=== PATIENT | male | born 1940 | race Caucasian/White ===

== ENCOUNTER → 2024-09-06 | Outpatient (CLI) | payer MEDICARE, BC, SELFPAY ==
[2024-09-06 09:18] LABS: Basophils # (Auto) 0.1 Thou/mm3 (0.0-0.2); Basophils % (Auto) 2 % (0-2.5); Eosinophils # (Auto) 0.2 Thou/mm3 (0.0-0.5); Eosinophils % (Auto) 6 % (0-10); Hematocrit 40.8 % (41.0-53.0); Hemoglobin 12.8 g/dL (13.5-16.0); Immature Granulocytes % (Auto) 0 % (0-0); Immature Granulocytes Auto 0.01 Thou/mm3 (0.00-0.00); Lymphocytes # (Auto) 0.9 Thou/mm3 (1.0-4.8); Lymphocytes % (Auto) 28 % (10-50); Mean Corpuscular HGB Conc 31.4 g/dl (31.0-37.0); Mean Corpuscular Hemoglobin 30.2 pg (25.0-35.0); Mean Corpuscular Volume 96 fL (80-100); Monocytes # (Auto) 0.3 Thou/mm3 (0.0-0.8); Monocytes % (Auto) 8 % (0-12); Neutrophils # (Auto) 1.8 Thou/mm3 (1.8-7.7); Neutrophils % (Auto) 57 % (37-80); Nucleated Red Blood Cell % 0 /100 WBC (0); Platelet Count 137 Thou/mm3 (140-440); Red Blood Count 4.24 Miln/mm3 (4.50-5.90); White Blood Count 3.1 Thou/mm3 (3.8-10.6)
[2024-09-06 09:36] LABS: Glucose Estimated Average 111 mg/dL (80-131); Hemoglobin A1C 5.5 % Hgb (4.8-6.0)
[2024-09-06 09:45] LABS: Alanine Aminotransferase 36 U/L (10-49); Albumin, Serum 4.1 gm/dL (3.4-4.8); Alkaline Phosphatase 48 U/L (46-116); Anion Gap 4 (7-16); Aspartate Amino Transferase 31 U/L (0-34); BUN/Creatinine Ratio 19 Ratio (12-20); Bilirubin,Total 1.1 mg/dL (0.3-1.2); Blood Urea Nitrogen 19 mg/dL (9-23); Calcium 10.3 mg/dL (8.3-10.6); Calcium (Corrected) 10.3 mg/dL (8.5-10.1); Carbon Dioxide 27.4 mMol/L (20.0-31.0); Cardiac Risk Estimate 3.4 RATIO (4.0-6.7); Chloride 112 mMol/L (98-107); Cholesterol 179 mg/dL (132-200); Globulin 2.1 gm/dL (2.3-3.5); Glucose 100 mg/dL (74-106); HDL Cholesterol 52 mg/dL (40-60); LDL Cholesterol,Calculated 106 mg/dL (0-130); Osmolality,Calculated 287 (275-295); Potassium 4.2 mMol/L (3.4-5.1); Sodium 143 mMol/L (136-145); Thyroid Stimulating Hormone 2.84 uIU/mL (0.55-4.78); Total Protein 6.2 gm/dL (5.7-8.2); Triglycerides 103 mg/dL (30-150); eGFR > 60 See Note
[2024-09-06 09:56] LABS: Ferritin 243 ng/mL (10.5-307.3); Iron 103 mcg/dL (65-175); Percent Iron Saturation 34 % (20-55); Total Iron Binding Capacity 297 mcg/dL (250-425); Unsaturated Iron Binding 194 (225-295)
== END | disposition home or self-care (01) ==
PROVIDERS: PCP Family Medicine; Referring Provider Physician Assistant; Visit Provider Physician Assistant
DX: I10 Essential (primary) hypertension (principal); E78.5 Hyperlipidemia, unspecified; E03.9 Hypothyroidism, unspecified; R73.01 Impaired fasting glucose; D50.9 Iron deficiency anemia, unspecified
CPT/HCPCS: 36415; 80053; 80061; 82728; 83036; 83540; 83550; 84443; 85025

== ENCOUNTER → 2024-10-14 | Outpatient (CLI) | payer MEDICARE, BC, SELFPAY ==
[2024-10-14 13:46] LABS: Alanine Aminotransferase 27 U/L (10-49); Albumin/Globulin Ratio 1.8 (1.2-2.2); Alkaline Phosphatase 50 U/L (46-116); Anion Gap 4 (7-16); Aspartate Amino Transferase 22 U/L (0-34); BUN/Creatinine Ratio 21 Ratio (12-20); Bilirubin,Total 0.9 mg/dL (0.3-1.2); Blood Urea Nitrogen 25 mg/dL (9-23); Calcium 10.4 mg/dL (8.3-10.6); Calcium (Corrected) 10.4 mg/dL (8.5-10.1); Carbon Dioxide 31.1 mMol/L (20.0-31.0); Chloride 106 mMol/L (98-107); Creatinine (Component) 1.2 mg/dL (0.6-1.3); Globulin 2.2 gm/dL (2.3-3.5); Glucose 115 mg/dL (74-106); Osmolality,Calculated 286 (275-295); Potassium 4.3 mMol/L (3.4-5.1); Sodium 141 mMol/L (136-145); Total Protein 6.2 gm/dL (5.7-8.2); eGFR 60 See Note
== END | disposition home or self-care (01) ==
LOC: COPL 11:42
PROVIDERS: PCP Family Medicine; Referring Provider Family Medicine; Visit Provider Family Medicine
DX: M81.0 Age-related osteoporosis without current pathological fracture (principal)
CPT/HCPCS: 36415; 80053

== ENCOUNTER → 2024-10-17 | Outpatient (CLI) | payer MEDICARE, BC, SELFPAY ==
[2024-10-17 09:21] VITALS: BP 127/78; PULSE 61; RESP 18; TEMP 36.3; O2SAT 98; BMI 29.0
[2024-10-17] MEDS: DENOSUMAB INJ 60 MG/ML SYRINGE SC (09:33)
[2024-10-17 09:44] VITALS: BP 119/80; PULSE 64; RESP 17; TEMP 36.3; O2SAT 98
== END | disposition home or self-care (01) ==
PROVIDERS: PCP Family Medicine; Referring Provider Family Medicine; Visit Provider Family Medicine
PROC: (CPT 96372; principal; 2024-10-17 08:30)
DX: M81.0 Age-related osteoporosis without current pathological fracture (principal)
CPT/HCPCS: 96372; J0897

== ENCOUNTER → 2025-01-24 | Outpatient (CLI) | payer MEDICARE, BC, SELFPAY ==
--- NOTE | 2025-01-24 13:00 | XR_ITS ---
Examination: MRI brain without intravenous contrast. Date and time of exam: January 24, 2025 1321 hours Comparison May 18, 2020 INDICATIONS: Increasing memory loss several years Technique: Multiple axial and sagittal images of the brain obtained. Siemens high-resolution 1.5 Shannan short bore scanners utilized. Sagittal sections, T1-weighted, TR 500, TE 14, are performed. Axial sections proton-density and T2-weighted have been obtained. Inversion recovery axial images, TR 9, 260, TE 111, TI 2500. Diffusion weighted images, axial sections, TR 4800, TE 128, B value 1000 Axial sections, ADC map, TR 4800, TE 128 Findings: Enlargement of the sella turcica is not present. The optic chiasm and infundibular are not remarkable. Prepontine and interpeduncular cisterns are not enlarged. There is no localized enlargement of the medulla or genoveva. Fourth ventricle and cerebellar tonsils appear normal in position. No subacute area of hemorrhage density is seen. Mass in the cerebellopontine angle region is not evident. Globes symmetrical. Orbital musculature including medial lateral rectus muscles do not exhibit abnormality. Diffusion-weighted images demonstrate no focus of restricted diffusion. Increased white matter signal prominent Mass effect upon the ventricular system is not identified. Impression: Negative for acute hemorrhage mass effect or midline shift No acute infarct Prominent chronic microvascular white matter change
== END | disposition home or self-care (01) ==
PROVIDERS: Referring Provider Psychiatry & Neurology Neurology; Visit Provider Psychiatry & Neurology Neurology
DX: R90.82 White matter disease, unspecified (principal)
CPT/HCPCS: 70551

== ENCOUNTER → 2025-03-06 | Outpatient (CLI) | payer MEDICARE, BC, SELFPAY ==
[2025-03-06 11:46] LABS: Basophils % (Auto) 0 % (0-2.5); Eosinophils % (Auto) 0 % (0-10); Hematocrit 37.4 % (41.0-53.0); Hemoglobin 12.1 g/dL (13.5-16.0); Immature Granulocytes % (Auto) 0 % (0-0); Immature Granulocytes Auto 0.02 Thou/mm3 (0.00-0.00); Lymphocytes # (Auto) 0.7 Thou/mm3 (1.0-4.8); Lymphocytes % (Auto) 10 % (10-50); Mean Corpuscular HGB Conc 32.4 g/dl (31.0-37.0); Mean Corpuscular Hemoglobin 30.9 pg (25.0-35.0); Mean Corpuscular Volume 96 fL (80-100); Monocytes # (Auto) 0.3 Thou/mm3 (0.0-0.8); Monocytes % (Auto) 5 % (0-12); Neutrophils % (Auto) 85 % (37-80); Nucleated Red Blood Cell % 0 /100 WBC (0); Platelet Count 148 Thou/mm3 (140-440); RDW Standard Deviation 46.4 fL (35.1-43.9); Red Blood Count 3.91 Miln/mm3 (4.50-5.90); White Blood Count 7.1 Thou/mm3 (3.8-10.6)
[2025-03-06 12:02] LABS: Glucose Estimated Average 114 mg/dL (80-131); Hemoglobin A1C 5.6 % Hgb (4.8-6.0)
[2025-03-06 12:11] LABS: Alanine Aminotransferase 22 U/L (10-49); Albumin/Globulin Ratio 1.5 (1.2-2.2); Alkaline Phosphatase 46 U/L (46-116); Anion Gap 9 (7-16); Aspartate Amino Transferase 24 U/L (0-34); BUN/Creatinine Ratio 18 Ratio (12-20); Bilirubin,Total 1.2 mg/dL (0.3-1.2); Blood Urea Nitrogen 20 mg/dL (9-23); Calcium 10.5 mg/dL (8.3-10.6); Calcium (Corrected) 10.5 mg/dL (8.5-10.1); Carbon Dioxide 26.3 mMol/L (20.0-31.0); Cardiac Risk Estimate 3.4 RATIO (4.0-6.7); Chloride 110 mMol/L (98-107); Cholesterol 179 mg/dL (132-200); Creatinine (Component) 1.1 mg/dL (0.6-1.3); Globulin 2.6 gm/dL (2.3-3.5); Glucose 137 mg/dL (74-106); HDL Cholesterol 52 mg/dL (40-60); LDL Cholesterol,Calculated 114 mg/dL (0-130); Osmolality,Calculated 293 (275-295); Potassium 4.7 mMol/L (3.4-5.1); Sodium 145 mMol/L (136-145); Thyroid Stimulating Hormone 0.95 uIU/mL (0.55-4.78); Total Protein 6.6 gm/dL (5.7-8.2); Triglycerides 64 mg/dL (30-150); eGFR > 60 See Note
[2025-03-06 12:13] LABS: Ferritin 237 ng/mL (10.5-307.3); Iron 101 mcg/dL (65-175)
== END | disposition home or self-care (01) ==
LOC: COPL 09:44
PROVIDERS: PCP Family Medicine; Referring Provider Physician Assistant; Visit Provider Physician Assistant
DX: E78.5 Hyperlipidemia, unspecified (principal); R73.01 Impaired fasting glucose; I10 Essential (primary) hypertension; E03.9 Hypothyroidism, unspecified; D50.9 Iron deficiency anemia, unspecified
CPT/HCPCS: 36415; 80053; 80061; 82728; 83036; 83540; 84443; 85025

== ENCOUNTER → 2025-03-19 | Outpatient (CLI) | payer MEDICARE, BC, SELFPAY ==
[2025-03-19 10:00] VITALS: BP 99/66; PULSE 52; RESP 15; TEMP 37; O2SAT 98; BMI 30.7
[2025-03-19] MEDS: DENOSUMAB INJ 60 MG/ML SYRINGE SC (10:11)
[2025-03-19 10:15] VITALS: BP 123/67; PULSE 51; RESP 15; TEMP 36.4; O2SAT 100
== END | disposition home or self-care (01) ==
PROVIDERS: PCP Family Medicine; Referring Provider Family Medicine; Visit Provider Family Medicine
PROC: (CPT 96372; principal; 2025-03-19 09:00)
DX: M81.0 Age-related osteoporosis without current pathological fracture (principal)
CPT/HCPCS: 96372; J0897

== ENCOUNTER 2025-04-18 13:07 | Emergency (ER) | payer MEDICARE, BC, SELFPAY ==
[2025-04-18 13:24] VITALS: BP 145/89; PULSE 116; RESP 20; TEMP 36.8; O2SAT 95
--- NOTE | 2025-04-18 13:27 | XR_ITS ---
Examination: Hand, left 3 views Technique: Hand AP, oblique, lateral 3 views Date and time of exam: April 18, 2025 1328 hours INDICATIONS: Hand swelling and pain beginning 2 weeks ago. FINDINGS: Severe osteopenia No acute fracture No cortical bone obstruction No erosive arthritis IMPRESSION: Severe osteopenia No fracture
--- NOTE | 2025-04-18 13:28 | PD.EDHAND ---
Upper Extremity Injury RME/HPI General Chief Complaint: Hand/Wrist Problems Stated Complaint: Left hand pain on antibiotics X 10 days Time Seen by Provider: 04/18/25 13:17 Arrival date/time: 04/18/25 13:07 RME / HPI RME / HPI narrative: 85-year-old male patient was brought in by family for evaluation regarding hand pain. Patient was diagnosed with hand infection, 10 days ago, and was given clindamycin. Patient is currently taking clindamycin for 4 more days left. This morning patient woke up with worsening pain to the left hand, described as sharp pain severity moderate patient verbalized that the swelling and redness is totally gone. No fever noted went to PCP and was referred here for further evaluation. Related Data Home Medications ?Medication ?Instructions ?Recorded ?Confirmed tamsulosin 0.4 mg capsule 0.4 mg PO QDAY 08/20/19 10/17/24 carvedilol 3.125 mg tablet (Coreg) 3.125 mg PO BID 05/18/20 10/17/24 levothyroxine 75 mcg tablet 25 mcg PO QAM 05/18/20 10/17/24 amiodarone 200 mg tablet 200 mg PO BID 12/20/21 10/17/24 omeprazole 20 mg capsule,delayed 20 mg PO QDAY 12/20/21 10/17/24 release warfarin 2.5 mg tablet 2.5 mg PO QDAY 10/21/22 10/17/24 oxybutynin chloride 10 mg 10 mg PO QDAY 03/31/23 10/17/24 tablet,extended release 24 hr Previous Rx's ?Medication ?Instructions ?Recorded acetaminophen 300 mg-codeine 30 mg 1 tab PO Q8H pain #20 tabs 04/18/25 tablet Allergies Allergy/AdvReac Type Severity Reaction Status Date / Time No Known Allergies Allergy Verified 04/18/25 13:14 Review of Systems Review of Systems Narrative Review of Systems: Review of system reviewed and within normal limits except mentioned in HPI ED Exam Narrative Physical exam: VITAL SIGNS: Reviewed. GENERAL APPEARANCE: Alert and interactive, follows commands, no acute distress, HEAD AND FACE: Non-traumatic. ENT: PERRL, pink conjunctivitis, eyelid no trauma, Mucous membrane moist. NECK: Supple, nontender, no nuchal rigidity. CHEST: No tenderness, no crepitus, no paradoxical movement, no retractions. LUNGS: Clear, well ventilated, symmetric, no rales, no wheezing, no ronchi, no stridor, good breath sounds bilaterally. HEART: Regular rate, regular rhythm, no murmur, no gallops. ABDOMEN: Soft, positive bowel sounds, nondistended, no guarding, nontender, no rebound, no masses, RECTAL: Deferred. GENITAL: Deferred. NEUROLOGICAL: Gross motor function intact sensory function intact, Appropriate for age. MUSCULOSKELETAL: low back nontender, full range of motion. EXTREMITIES: Tenderness to the dorsal aspect of the hand, no redness no swelling no deformity, full range of motion. SKIN: Color pink, dry, no rash, no lacerations, no abrasions, no contusions. LYMPHATICS: Deferred. Course Quality Measures none Orders Category Date Time Status XR hand LT 2V Stat Exams 04/18/25 13:27 Completed CBC Stat Lab 04/18/25 13:34 Completed CRP [C-Reactive Protein] Stat Lab 04/18/25 13:34 Completed Comprehensive Metabolic Panel Stat Lab 04/18/25 13:34 Completed ESR [Sed Rate (ESR)] Stat Lab 04/18/25 13:34 Completed Partial Thromboplastin Time Stat Lab 04/18/25 13:34 Completed Prothrombin Time with INR Stat Lab 04/18/25 13:34 Completed Uric Acid Stat Lab 04/18/25 13:34 Completed Morphine Inj Med 04/18/25 13:27 Discontinued 5 mg IM X1 ONE Ondansetron Odt [Zofran Odt] Med 04/18/25 13:27 Discontinued 4 mg PO X1 ONE Vital Signs Vital signs: Vital Signs Temperature 98.2 F 04/18/25 13:24 Pulse Rate 116 H 04/18/25 13:24 Respiratory Rate 20 04/18/25 13:24 Blood Pressure 145/89 H 04/18/25 13:24 Pulse Oximetry (%) 95 04/18/25 13:24 Oxygen Delivery Method Room Air 04/18/25 13:24 Extremity Injury MDM Narrative MDM Narrative:: 85-year-old male patient was brought in by family for evaluation regarding hand pain. Patient was diagnosed with hand infection, 10 days ago, and was given clindamycin. Patient is currently taking clindamycin for 4 more days left. This morning patient woke up with worsening pain to the left hand, described as sharp pain severity moderate patient verbalized that the swelling and redness is totally gone. No fever noted went to PCP and was referred here for further evaluation. X-ray of the hand showed no acute pathology except for osteopenia. Laboratory CBC no leukocytosis noted. PT was noted to be 46.8 INR 4.8. Patient is currently stopping his Coumadin until seen by PCP. CMP unremarkable. ESR and CRP slightly elevated. Patient was placed on hand splint. Was also given morphine with significant improvement of pain. Patient data External records reviewed:: None Clinical information provided by:: patient Social determinants that could affect healthcare access:: none Patient has the following chronic illnesses:: Hypertension, CAD, on Coumadin How is presenting disease/condition affected by chronic disease/condition?: exacerbated by Evaluation data The following diagnostics were reviewed and interpreted by me:: lab results and radiology exam(s) Lab and/or radiology exams considered but not ordered:: None Interpretation Summary: See results MDM Medications / Prescriptions Medications or Prescriptions considered but not ordered:: None Medication administrations:: Medication Administration History Discontinued Medications Morphine Sulfate (Morphine Sulf Inj 10 Mg/Ml Vial) 5 mg IM X1 ONE Stop: 04/18/25 13:28 Last Admin: 04/18/25 13:43 Dose: 5 mg Documented By: SOPHIE Ondansetron HCl (Ondansetron Odt 4 Mg Tabrap) 4 mg PO X1 ONE; Protocol Stop: 04/18/25 13:28 Last Admin: 04/18/25 13:43 Dose: 4 mg Documented By: SOPHIE Vo morphine Consultations Consultation(s) initiated? (list below): No Diagnosis Upper Extremity Injury Differential Diagnosis: sprain and strain of wrist, fracture of hand and other (Hand sprain) Most likely diagnosis given after review of the tests above:: Hand pain Admission Indicated Admission indicated?: not indicated Admission Request Was there a request for admission?: No Disposition Plan Disposition Plan: Discharge Discharge Attestation Discharge Attestation: The patient and all family members were given an opportunity to ask questions and understood the discharge instructions. Discharge instructions specifically effects, indications for sooner follow up or return to the emergency department, and the expected course of current diagnosis. Patient condition: Stable Discharge Plan Plan Patient Disposition: HOME (Self Care) Discharge Disposition comment: Stable Prescriptions/Referrals Prescriptions/Med Rec: New acetaminophen-codeine 300-30 mg tablet 1 tab PO Q8H Qty: 20 0RF No Action tamsulosin 0.4 mg capsule 0.4 mg PO QDAY oxybutynin chloride 10 mg tablet extended release 24hr 10 mg PO QDAY carvedilol [Coreg] 3.125 mg Tablet 3.125 mg PO BID levothyroxine 75 mcg tablet 25 mcg PO QAM Patient Comments: TAKE 1 TABLET BY MOUTH ONCE DAILY IN THE MORNING ON AN EMPTY STOMACH FOR 90 DAYS amiodarone 200 mg tablet 200 mg PO BID omeprazole 20 mg capsule,delayed release(DR/EC) 20 mg PO QDAY warfarin 2.5 mg tablet 2.5 mg PO QDAY Patient Comments: TAKE 1 TABLET BY MOUTH ONCE DAILY FOR 90 DAYS Referrals: Heriberto Grigsby MD [Primary Care Provider] - In 1 week Problem List Clinical Impression: Hand pain Patient/Caregiver Discharge Instructions Discharge Activity: activity as tolerated Education Materials: ED Hand Sprain Additional Instructions: Thank you for the opportunity for serving you today. You are stable for discharged . You are advised to: Follow-up with your PCP in 1 to 2 days Return to ED for worsening of symptoms Increase oral fluids Take medication as prescribed Wear your splint as needed Print Language: Bahamian Stand Alone Forms: Helen Award Info., Patient Portal Info Letter
[2025-04-18] MEDS: ONDANSETRON ODT 4 MG TABRAP PO (13:43)
[2025-04-18] MEDS: MORPHINE SULF INJ 10 MG/ML VIAL 5 MG IM (13:43)
[2025-04-18 13:45] LABS: Basophils % (Auto) 0 % (0-2.5); Eosinophils # (Auto) 0.1 Thou/mm3 (0.0-0.5); Eosinophils % (Auto) 1 % (0-10); Hematocrit 38.7 % (41.0-53.0); Hemoglobin 12.4 g/dL (13.5-16.0); Immature Granulocytes % (Auto) 1 % (0-0); Immature Granulocytes Auto 0.05 Thou/mm3 (0.00-0.00); Lymphocytes # (Auto) 1.6 Thou/mm3 (1.0-4.8); Lymphocytes % (Auto) 16 % (10-50); Mean Corpuscular Hemoglobin 30.6 pg (25.0-35.0); Mean Corpuscular Volume 96 fL (80-100); Monocytes # (Auto) 0.7 Thou/mm3 (0.0-0.8); Monocytes % (Auto) 8 % (0-12); Neutrophils # (Auto) 7.1 Thou/mm3 (1.8-7.7); Neutrophils % (Auto) 74 % (37-80); Nucleated Red Blood Cell % 0 /100 WBC (0); Platelet Count 198 Thou/mm3 (140-440); RDW Standard Deviation 47.7 fL (35.1-43.9); Red Blood Count 4.05 Miln/mm3 (4.50-5.90); White Blood Count 9.6 Thou/mm3 (3.8-10.6)
[2025-04-18 14:04] LABS: Alanine Aminotransferase 31 U/L (10-49); Albumin, Serum 3.7 gm/dL (3.4-4.8); Albumin/Globulin Ratio 1.5 (1.2-2.2); Alkaline Phosphatase 59 U/L (46-116); Anion Gap 9 (7-16); Aspartate Amino Transferase 22 U/L (0-34); BUN/Creatinine Ratio 16 Ratio (12-20); Bilirubin,Total 1.4 mg/dL (0.3-1.2); Blood Urea Nitrogen 21 mg/dL (9-23); C-Reactive Protein 6.1 mg/dL (0.0-0.9); Calcium 11.3 mg/dL (8.3-10.6); Calcium (Corrected) 11.5 mg/dL (8.5-10.1); Chloride 101 mMol/L (98-107); Creatinine (Component) 1.3 mg/dL (0.6-1.3); Globulin 2.4 gm/dL (2.3-3.5); Glucose 119 mg/dL (74-106); Osmolality,Calculated 287 (275-295); Potassium 4.1 mMol/L (3.4-5.1); Sodium 142 mMol/L (136-145); Total Protein 6.1 gm/dL (5.7-8.2); Uric Acid 8.5 mg/dL (3.7-9.2); eGFR 54 See Note
[2025-04-18 14:15] LABS: INR 4.8 (0.9-1.3); Partial Thromboplastin Time 70.9 Seconds (22.0-36.0)
[2025-04-18 14:18] LABS: Sed Rate (ESR) 43 mm/hr (0-20)
[2025-04-18 14:49] LABS: Prothrombin Time 46.8 Seconds (9.0-12.2)
== END 2025-04-18 17:16 | disposition home or self-care (01) ==
PROVIDERS: Nurse Practitioner Family; Emergency Provider Emergency Medicine; PCP Family Medicine
DX: M79.642 Pain in left hand (principal); M85.842 Other specified disorders of bone density and structure, left hand; M79.89 Other specified soft tissue disorders
CPT/HCPCS: 36415; 73120; 73130; 80053; 84550; 85025; 85610; 85652; 85730; 86140; 96372; 99283; J2270; Q0162

== ENCOUNTER → 2025-09-26 | Outpatient (CLI) | payer MEDICARE, BC, SELFPAY ==
[2025-09-26 10:40] VITALS: BMI 28.2
[2025-09-26] MEDS: DENOSUMAB INJ 60 MG/ML SYRINGE SC (10:50)
[2025-09-26 11:09] VITALS: BP 156/82; PULSE 58; RESP 18; TEMP 36.4; O2SAT 98
[2025-09-26 11:13] VITALS: BP 141/78; PULSE 56; RESP 18; TEMP 36.4; O2SAT 98
== END | disposition home or self-care (01) ==
LOC: SFLEX 10:16
PROVIDERS: PCP Family Medicine; Referring Provider Family Medicine; Visit Provider Family Medicine
PROC: (CPT 96372; principal; 2025-09-26 10:15)
DX: M81.0 Age-related osteoporosis without current pathological fracture (principal)
CPT/HCPCS: 96372; J0897

== ENCOUNTER → 2025-10-07 | Outpatient (CLI) | payer MEDICARE, BC, SELFPAY ==
[2025-10-07 11:12] LABS: Basophils # (Auto) 0.0 Thou/mm3 (0.0-0.2); Basophils % (Auto) 1 % (0-2.5); Eosinophils # (Auto) 0.1 Thou/mm3 (0.0-0.5); Eosinophils % (Auto) 2 % (0-10); Hematocrit 39.0 % (41.0-53.0); Hemoglobin 12.0 g/dL (13.5-16.0); Immature Granulocytes Auto 0.01 Thou/mm3 (0.00-0.00); Lymphocytes # (Auto) 1.3 Thou/mm3 (1.0-4.8); Lymphocytes % (Auto) 31 % (10-50); Mean Corpuscular HGB Conc 30.8 g/dl (31.0-37.0); Mean Corpuscular Hemoglobin 29.8 pg (25.0-35.0); Mean Corpuscular Volume 97 fL (80-100); Monocytes # (Auto) 0.3 Thou/mm3 (0.0-0.8); Monocytes % (Auto) 8 % (0-12); Neutrophils # (Auto) 2.5 Thou/mm3 (1.8-7.7); Neutrophils % (Auto) 58 % (37-80); Nucleated Red Blood Cell # 0.00 Thou/mm3 (0.00-0.00); Nucleated Red Blood Cell % 0 /100 WBC (0); Platelet Count 142 Thou/mm3 (140-440); RDW Standard Deviation 52.1 fL (35.1-43.9); Red Blood Count 4.03 Miln/mm3 (4.50-5.90); White Blood Count 4.3 Thou/mm3 (3.8-10.6)
[2025-10-07 11:14] LABS: Collection Type, Urine Clean Catch; Squamous Epithelial Cell,Urine 0 /hpf (0-5)
[2025-10-07 11:26] LABS: Glucose Estimated Average 123 mg/dL (80-131); Hemoglobin A1C 5.9 % Hgb (4.8-6.0)
[2025-10-07 12:09] LABS: Alanine Aminotransferase 21 U/L (10-49); Albumin, Serum 4.2 gm/dL (3.4-4.8); Alkaline Phosphatase 62 U/L (46-116); Anion Gap 8 (7-16); Aspartate Amino Transferase 15 U/L (0-34); BUN/Creatinine Ratio 18 Ratio (12-20); Bilirubin,Total 1.1 mg/dL (0.3-1.2); Blood Urea Nitrogen 14 mg/dL (9-23); Calcium 9.6 mg/dL (8.3-10.6); Calcium (Corrected) 9.6 mg/dL (8.5-10.1); Carbon Dioxide 24.7 mMol/L (20.0-31.0); Chloride 111 mMol/L (98-107); Creatinine (Component) 0.8 mg/dL (0.6-1.3); Glucose 91 mg/dL (74-106); Osmolality,Calculated 287 (275-295); Potassium 4.5 mMol/L (3.4-5.1); Sodium 144 mMol/L (136-145); Thyroid Stimulating Hormone 1.73 uIU/mL (0.55-4.78); eGFR > 60 See Note
[2025-10-07 12:34] LABS: Bilirubin,Urine Negative (Negative); Blood,Urine Negative (Negative); Clarity,Urine Clear (Clear/Hazy); Color,Urine Yellow (Lt Yel-Yel); Culture Indicated,Urine Not Indicated; Glucose, Urine Negative (Negative); Hyaline Casts,Urine < 1 /hpf (0-1); Ketones,Urine Negative (Negative); Leukocyte Esterase,Urine Negative (Negative); Nitrite,Urine Negative (Negative); PH,Urine 7.5 (5.0-7.0); Protein,Urine Negative (Neg - Trace); RBC,Urine 1 /hpf (0-3); Specific Gravity,Urine 1.023 (1.001-1.035); Urobilinogen,Urine Negative mg/dL (0.0-1.0); WBC,Urine 4 /hpf (0-5)
[2025-10-07 13:25] LABS: Parathyroid Hormone Intact 232.7 pg/ml (18.5-88.0)
[2025-10-07 13:53] LABS: Vitamin B12 202 pg/mL (211-911); Vitamin D 25 Hydroxy Total 41.4 ng/mL (7.3-40.2)
[2025-10-07 13:55] LABS: Albumin/Globulin Ratio 1.8 (1.2-2.2); Cardiac Risk Estimate 2.4 RATIO (4.0-6.7); Cholesterol 157 mg/dL (132-200); Globulin 2.3 gm/dL (2.3-3.5); HDL Cholesterol 65 mg/dL (40-60); LDL Cholesterol,Calculated 77 mg/dL (0-130); Total Protein 6.5 gm/dL (5.7-8.2); Triglycerides 75 mg/dL (30-150)
[2025-10-07 14:05] LABS: Ferritin 213 ng/mL (10.5-307.3); Iron 83 mcg/dL (65-175)
== END | disposition home or self-care (01) ==
LOC: COPL 10:16
PROVIDERS: PCP Family Medicine; Referring Provider Physician Assistant; Visit Provider Physician Assistant
DX: R73.01 Impaired fasting glucose (principal); I10 Essential (primary) hypertension; E03.9 Hypothyroidism, unspecified; E78.5 Hyperlipidemia, unspecified; D50.9 Iron deficiency anemia, unspecified; E21.3 Hyperparathyroidism, unspecified
CPT/HCPCS: 36415; 80053; 80061; 81001; 82306; 82607; 82728; 83036; 83540; 83970; 84153; 84443; 85025

== ENCOUNTER → 2025-10-08 | Outpatient (CLI) | payer MEDICARE, BC, SELFPAY ==
[2025-10-13 06:41] LABS: Fecal Globin Result NOT DETECTED (NOT DETECTED)
== END | disposition home or self-care (01) ==
LOC: SLDO 12:31
PROVIDERS: PCP Physician Assistant; Referring Provider Physician Assistant; Visit Provider Physician Assistant
DX: R73.01 Impaired fasting glucose (principal); I10 Essential (primary) hypertension; E03.9 Hypothyroidism, unspecified; E78.5 Hyperlipidemia, unspecified; D50.9 Iron deficiency anemia, unspecified; E21.3 Hyperparathyroidism, unspecified
CPT/HCPCS: 82274; G0328